=== PATIENT | female | born 1990 | race Caucasian/White ===

== ENCOUNTER 2021-03-16 05:38 | Day surgery (SDC) | payer OTHER ==
[~2021-03-16] VITALS: Ht 172.7 cm; Wt 65.0 kg
--- NOTE | ~2021-03-16 | OR ---
[facility] [address], [place] [address] Draft DATE OF OPERATION: 03/16/2021 SURGEON: Pietro Morris MD PREOPERATIVE DIAGNOSES: 1. Chronic frontal sinusitis. 2. Chronic ethmoiditis. 3. Chronic sphenoiditis. 4. Chronic maxillary sinusitis. 5. Deviated nasal septum. 6. Sinus headaches. 7. Recurring acute sinusitis. POSTOPERATIVE DIAGNOSES: 1. Chronic frontal sinusitis. 2. Chronic ethmoiditis. 3. Chronic sphenoiditis. 4. Chronic maxillary sinusitis. 5. Deviated nasal septum. 6. Sinus headaches. 7. Recurring acute sinusitis. PROCEDURES: 1. Bilateral endoscopic frontal ethmoidectomy, 90667-25. 2. Nasal septoplasty, 76584. 3. Bilateral endoscopic sphenoidotomies, 76128-97. 4. Bilateral endoscopic maxillary antrostomies, 88400-89. INDICATIONS: This 30-year-old female, who has a significant family history of sinus disease has required sinus surgery a couple of times. This patient for the last 10 years has had significance of headaches, which have been determined to be sinus origin in the frontal region around the teeth and base of the occiput. Also, she does not breathe through her right side very well. She has been treated for sinus infections for 3 or 5 years, about three times per year with antibiotics. She feels better on antibiotics, when they go off and she feels her symptoms come back. As part of her evaluation, CT scan showed a significant very large nasal septal spur stabbing into the middle turbinates making contact and lateralizing the middle turbinates, also some thickening of the inflammatory tissue presumed, which was seen at the ethmoid bulla, also some of the posterior ethmoids and maxillary sinuses. Because of the patient's PATIENT NAME: TERRENCE CALLAHAN OPERATIVE REPORT DATE OF : 89 REPORT #: [id number] PHYSICIAN: PIETRO MORRIS MD PCP: UNASSIGNED DOCTOR REPORT IS CONFIDENTIAL AND NOT TO BE RELEASED WITHOUT AUTHORIZATION [facility] [address], [place] [address] Draft symptoms with the above findings and clinical history, it was felt that septoplasty and sinus surgery would greatly benefit her, take her headaches away and diminish her sinus infections. The patient failed medical treatment. DESCRIPTION OF PROCEDURE: The patient was placed in the supine position, had an orotracheal intubation, was placed under general anesthesia. Photographs were obtained preop, intraop, and postoperatively. Left side was approached first because right side could not be endoscoped without moving the septum over. Middle turbinates and the uncinate process were injected with a couple of mL of lidocaine with epinephrine with a 25-gauge spinal needle. The anterior inferior portion of middle turbinate was trimmed away, widening the middle meatus. The uncinate process was then incised with a sickle knife, opening it up widely. The maxillary ostium had a distinct posterior direction, ostium was widened and removed to the posterior fontanelle. Then, after all of the uncinate process was removed, the ethmoid bulla was pierced with a curette and then going air cell to air cell. All the ethmoids were opened removing the inner sinus septations, cutting them sharply with a Thru-Cut ethmoid punch. A trans-ethmoid sphenoidotomy was done staying low at the same level as the maxillary ostium. Once the ceiling to the sphenoid sinus could be visualized, then the rostrum was removed with the Kerrison forceps, working out at the base of skull. Then, that plain was used to dissect out the ethmoids coming anteriorly, doing now with a 70-degree scope up in the frontal sinus. Frontal sinus had a pretty narrow nasofrontal duct with pneumatization that went anterior from the superior most portion, making the beak quite thick. After making sure that nasal frontal duct was nicely exposed, removing all the inner sinus septations, sagittal and coronal plane, no more work was done which might have scarred that closed. A piece of nasal pore with mupirocin ointment was placed into that side to help prevent lateralization of middle turbinates. The septum was then repaired injecting with couple of mL of lidocaine, also 3 mL of 0.5% Marcaine with 1:200,000 epinephrine utilizing hydrodissection before an incision was made at the junction of the floor, then elevating the periosteum with a curette. The dissection went posteriorly lifting up the mucoperichondrium and then the mucoperiosteum. The bone from cartilage very easily at the junction and then bilateral elevation of mucoperiosteum was done. The spur was stabbing very tightly into the middle turbinates and there was an adhesion band between there, which was consistent with a history of trauma, though the patient does not remember any. This septum shaped like the letter V on its side without sharp point. The flaps were elevated over the point and Fonseca scissors used to cut the superior connection with perpendicular plate and inferiorly was cut with an osteotome and a mallet. Then, this whole thing was removed with Mari forceps. There was quite a large piece of bone sharp on the end. Also, some of the maxillary crest was thinned out and some of the pieces of cartilage which were overlying the maxillary crest causing separate distinct inferior spur that was removed and the flaps based together in their middle position. This also seemed to straighten the patient's nose somewhat. PATIENT NAME: TERRENCE CALLAHAN OPERATIVE REPORT DATE OF : [birth year] REPORT #: [id number] PHYSICIAN: PIETRO MORRIS MD PCP: UNASSIGNED DOCTOR REPORT IS CONFIDENTIAL AND NOT TO BE RELEASED WITHOUT AUTHORIZATION [facility] [address], [place] [address] Draft Then, the right side of the sinuses were approached and they were dissected out, same as the left with removal of that very thinned out and lateralized middle turbinate. The uncinate process was flushed against it with lots of reactive chronic disease mucosa noted in that vicinity, also in the ethmoids, also in the posterior ethmoids. The sphenoid sinus was opened same as the left side with a trans-ethmoid sphenoidotomy. Again, same technique was used to open it up low, removed the rostrum coming up to the ceiling and changing to a 70-degree scope and dissecting that out. The frontal sinus had as it was a piece of bone like a trap door closing that off. The frontal sinus on the right side was much larger than the left. Still had a pneumatization pattern, where it went straight up by quite a narrow nasofrontal duct with an anterior pneumatization. That sagittal wall was photographed from an ethmoid air cell. Once that was opened and removed, that opened up the frontal sinus nicely. Ragged mucosa was trimmed with a microdebrider and some of the sharp cutting instruments. Then, the marsupialized sinuses had an another piece of nasal pore placed there, one small piece up in the nasofrontal duct to make sure that there were no adhesion bands, which formed across the frontal sinus nasofrontal duct. Also, larger piece was placed down low to make sure that the very thin middle turbinate remnant and lateralize. Estimated blood loss was much less than 50 mL. The patient tolerated the procedure well. There were no complications, went to the recovery room in good condition. Pietro Morris MD [facility] /[id number] Copies: ~ PATIENT NAME: TERRENCE CALLAHAN OPERATIVE REPORT DATE OF : [birth year] REPORT #: [id number] PHYSICIAN: PIETRO MORRIS MD PCP: UNASSIGNED DOCTOR REPORT IS CONFIDENTIAL AND NOT TO BE RELEASED WITHOUT AUTHORIZATION
[~2021-03-16 05:38] MED LIST: LEVOTHYROXINE100 MC2 PO
--- NOTE | 2021-03-16 06:39 | NUR ---
SECOND AFRIN SPRAY ADMINITSTERED. PATIENT RESTING BACK IN ROOM. ANSWERED QUESTIONS AND CONCERNS. CALL LIGHT WITHIN PLACE.
--- NOTE | 2021-03-16 10:05 | NUR ---
PT TAKEN TO OR, CONNECTED WITH IN RM. PLANS TO WAIT, REQUESTED DIRECTIONS TO [place]. GAVE ENCOURAGEMENT, ALL QUESTIONS ASKED WERE ANSWERED. WILL FOLLOW NEEDED
--- NOTE | 2021-03-16 10:22 | NUR ---
03/16/21 Aliza Cabral 1016-PATIENT ARRIVED TO PACU, BREATHING EVEN AND UNLABORED ON 6L O2 MASK. PATIENT DROWSY, RESPONDS TO VERBAL STIMULUS, OPENS EYES, BUT REMAINS VERY DROSWY AND NOT ANSWERING QUESTIONS AT THIS TIME.
--- NOTE | 2021-03-16 11:16 | NUR ---
PATIENT UP TO BATHROOM AFTER COMING TO THE FLOOR FROM RECOVERY. VOIDED WELL. TOLERATED ACTIVITY WELL. BACK TO BED, NOTED SMALL AMOUNT OF SHADOWING ON DRESSING TO NOSE. CALL LIGHT WITHIN REACH. CALLED IN TRAMADOL TO [facility].
== END 2021-03-16 13:00 | disposition home or self-care (01) ==
LOC: DS 05:38 → OPS 05:38 → DS 06:45 → OPS 06:45
PROVIDERS: ATTEND Otolaryngology
PROC: 099R4ZZ Drainage of Left Maxillary Sinus, Percutaneous Endoscopic Approach (ICD-10-PCS; 2021-03-16)
PROC: 099Q4ZZ Drainage of Right Maxillary Sinus, Percutaneous Endoscopic Approach (ICD-10-PCS; 2021-03-16)
PROC: 09RM4KZ Replacement of Nasal Septum with Nonautologous Tissue Substitute, Percutaneous Endoscopic Approach (ICD-10-PCS; 2021-03-16)
PROC: 09CX4ZZ Extirpation of Matter from Left Sphenoid Sinus, Percutaneous Endoscopic Approach (ICD-10-PCS; principal; 2021-03-16 06:45)
PROC: 09CW4ZZ Extirpation of Matter from Right Sphenoid Sinus, Percutaneous Endoscopic Approach (ICD-10-PCS; 2021-03-16 06:45)
DX: J32.1 Chronic frontal sinusitis (principal); J32.2 Chronic ethmoidal sinusitis; J32.3 Chronic sphenoidal sinusitis; J32.0 Chronic maxillary sinusitis; J34.2 Deviated nasal septum; R51.9 Headache, unspecified; I10 Essential (primary) hypertension; E11.9 Type 2 diabetes mellitus without complications; Z88.6 Allergy status to analgesic agent
CPT/HCPCS: 00160; J0330; J1100; J2001; J2405; J2704; J3010; J7121